=== PATIENT | male | born 1985 | race Caucasian/White ===

== ENCOUNTER 2018-10-05 11:01 | Emergency (ER) | payer OTHER ==
[~2018-10-05] VITALS: Ht 175.3 cm; Wt 77.1 kg
--- NOTE | 2018-10-05 11:05 | NUR ---
PT AMBULATES TO BED 3 Addendum: 10/05/18 at 1110 by [facility] BED 1
[2018-10-05 11:09] VITALS: BP 114/83
--- NOTE | 2018-10-05 11:15 | NUR ---
PT C/O GEN WEAKNESS AND DIZZINESS, N/V SINCE YESTERDAY, DENIES COUGH/CP OR SOB. STATES HE FEELS LIKE HE IS GETTING PNA AGIN. 06/02 PAIN WHEN BREATHING. GENERALIZED WEEKNESS. VOMITING AFTER EATING 2X TODAY. BED IN LOWER LOCKED POSITION. BEDRAILS UP X1. ER MD MADE AWARE OF PT STATUS WILL CONTINUE TO MONITOR. HX--PNA MEDS--NONE
--- NOTE | 2018-10-05 12:03 | NUR ---
FLU SWAP COLLECTED BY RN AND SENT WITH [employer] INSPECTOR.
[2018-10-05 12:50] VITALS: BP 135/78
== END 2018-10-05 12:50 | disposition home or self-care (01) ==
LOC: MED 11:01
DX: M79.10 Myalgia, unspecified site (principal); R05 Cough
CPT/HCPCS: 36415; 87804; 99283